=== PATIENT | male | born 1960 | race Caucasian/White ===

== ENCOUNTER 2023-02-22 11:46 | Emergency (ER) | payer SELFPAY | END 2023-02-22 12:09 | disposition left against medical advice (07) | LOC: MW.ED 11:46 | DX: Z53.21 Procedure and treatment not carried out due to patient leaving prior to being seen by health care provider (principal) ==

== ENCOUNTER 2023-02-24 01:26 | Emergency (ER) | payer SELFPAY | END 2023-02-24 01:40 | disposition left against medical advice (07) | LOC: MW.ED 01:26 | DX: Z53.21 Procedure and treatment not carried out due to patient leaving prior to being seen by health care provider (principal) ==

== ENCOUNTER 2023-02-24 02:03 | Emergency (ER) | payer SELFPAY | END 2023-02-24 04:20 | disposition home or self-care (01) | LOC: MW.ED 02:03 | DX: R33.9 Retention of urine, unspecified (principal) | CPT/HCPCS: 51702; 99283 ==

== ENCOUNTER 2023-03-03 16:37 | Emergency (ER) | payer SELFPAY ==
[2023-03-03] MEDS ORDERED: Sodium Chloride 0.9% 2.5 ML Syringe FLUSH PRN (17:04)
[2023-03-03] MEDS ORDERED: Sodium Chloride 0.9% 10 ML Syringe FLUSH PRN (17:04)
[2023-03-03] MEDS ORDERED: Sodium Chloride 0.9% 1,000 ML IV ONE (17:08)
[2023-03-03 17:29] LABS: BASE EXCESS VENOUS 0.4 (-2.0-3.0); BICARBONATE,VENOUS 26 mEq/L (23-28); PCO2 VENOUS 43 mmHG (41-51); PH,VENOUS 7.39 (7.31-7.41)
[2023-03-03 17:36] LABS: PO2 VENOUS < 30 mmHG
[2023-03-03 18:35] LABS: ACETAMINOPHEN <2.0 ug/mL; ETHANOL BLOOD MEDICAL < 3.0 mg/dL; LIPASE 104 U/L (73-393); MAGNESIUM 2.1 mg/dL (1.8-2.4); PHOSPHORUS 4.4 mg/dL (2.6-4.7); SALICYLATE 1.2 mg/dL (0.0-20.0); TSH ULTRASENSITIVE 1.23 uIU/mL (0.36-3.74)
[2023-03-03 19:13] LABS: APPEARANCE,URINE CLEAR; BILIRUBIN,URINE NEGATIVE (NEGATIVE); COLOR,URINE YELLOW; GLUCOSE,URINE NEGATIVE (NEGATIVE); KETONES,URINE NEGATIVE (NEGATIVE); LEUKOCYTE ESTERASE,URINE NEGATIVE (NEGATIVE); NITRITE,URINE NEGATIVE (NEGATIVE); OCCULT BLOOD,URINE NEGATIVE (NEGATIVE); PH,URINE 5.5 (5.0-8.0); PROTEIN,URINE NEGATIVE (NEGATIVE); UROBILINOGEN,URINE 0.2 EU/dL (<2.0)
[2023-03-03 19:19] LABS: D-DIMER QUANTITATIVE 0.48 mg/L FEU (0.00-0.50); INR 0.95 (0.86-1.11); PTT,PARTIAL THROMBOPLSTIN TIME 28.1 SEC (23.9-30.7)
[2023-03-03 19:23] LABS: AMPHETAMINES SCREEN, URINE NEGATIVE (CUTOFF=500); BARBITURATE SCREEN,URINE NEGATIVE (CUTOFF=200); BENZODIAZEPINES SCREEN,URINE NEGATIVE (CUTOFF=150); BUPRENORPHINE SCREEN,URINE NEGATIVE (CUTOFF=10); METHADONE SCREEN, URINE NEGATIVE (CUTOFF=200); METHAMPHETAMINES SCREEN, URINE NEGATIVE (CUTOFF=500); OXYCODONE SCREEN,URINE NEGATIVE (CUT0FF=100); PCP SCREEN,URINE NEGATIVE (CUTOFF=25); PROPOXYPHENE SCREEN,URINE NEGATIVE (CUTOFF=300); THC SCREEN,URINE 20 NG/ML NEGATIVE (CUTOFF=50)
== END 2023-03-03 19:25 | disposition home or self-care (01) ==
LOC: MW.ED 16:37
DX: R44.0 Auditory hallucinations (principal); R33.9 Retention of urine, unspecified; R60.0 Localized edema; F17.210 Nicotine dependence, cigarettes, uncomplicated; Z79.899 Other long term (current) drug therapy
CPT/HCPCS: 36415; 80143; 80164; 80179; 80305; 80307; 81003; 82140; 82803; 83690; 83735; 84100; 84443; 84484; 85379; 85610; 85730; 93005; 96360; 99285; J3490; J7030; 93010; 99283

== ENCOUNTER 2023-05-28 12:03 | Emergency (ER) | payer MEDICAID | END 2023-05-28 12:48 | disposition left against medical advice (07) | LOC: MW.ED 12:03 | DX: Z53.21 Procedure and treatment not carried out due to patient leaving prior to being seen by health care provider (principal) ==